=== PATIENT | male | born 1965 | race American Indian/Alaskan Native ===

== ENCOUNTER 2016-11-06 16:58 | Emergency (ER) | payer OTHER ==
[2016-11-06 17:40] VITALS: TEMP 98.7; O2SAT 100
--- NOTE | 2016-11-06 19:38 | C.PDOC ---
History Of Present Illness Patient presents to the ER with a complaint of swollen testicles for the past month. Denies any trauma, nausea, vomiting, diarrhea, fever, or chills. Time Seen by Provider: 11/06/16 19:38 Chief Complaint (Nursing): Abdominal Pain History Per: Patient History/Exam Limitations: no limitations Onset/Duration Of Symptoms: Days (1 Month) Current Symptoms Are (Timing): Still Present Severity: Mild Pain Scale Rating Of: 3 Associated Symptoms: denies: Fever, Chills, Nausea, Vomiting, Diarrhea Past Medical History Reviewed: Historical Data, Nursing Documentation, Vital Signs Vital Signs: Last Vital Signs Temp 98.7 F 11/06/16 17:37 Pulse 72 11/06/16 21:41 Resp 20 11/06/16 21:41 BP 164/96 H 11/06/16 21:41 Pulse Ox 100 11/06/16 20:17 Family History: States: No Known Family Hx - Social History Hx Alcohol Use: Yes Hx Substance Use: Yes (Marijuana) Review Of Systems Constitutional: Negative for: Fever, Chills Gastrointestinal: Negative for: Nausea, Vomiting, Diarrhea Genitourinary: Positive for: Scrotal Pain (Swelling) Physical Exam - Physical Exam Appears: Non-toxic Skin: Warm, Dry Oral Mucosa: Moist Chest: Symmetrical Cardiovascular: Rhythm Regular Respiratory: No Rales, No Rhonchi, No Wheezing Gastrointestinal/Abdominal: Bowel Sounds (Normal), Soft, No Tenderness, No Distention, No Guarding, No Rebound Male Genital: Scrotal Swelling, Other (Large right inguinal hernia, Bowels in scrotal sac.) Neurological/Psych: Oriented x3 ED Course And Treatment - Laboratory Results Result Diagrams: 11/06/16 20:17 11/06/16 20:17 O2 Sat by Pulse Oximetry: 100 (Room air) Pulse Ox Interpretation: Normal Progress Note: CT of abd/pelvis with PO & IV contrast, blood work, and urinalysis ordered. Reevaluation Time: 23:26 Reassessment Condition: Improved Medical Decision Making Medical Decision Making: Upon provider reevaluation patient is feeling better, is medically stable, and requires no further treatment in the ED at this time. Patient will be discharged home with Rx for naproxyn. Counseling was provided and all questions were answered regarding diagnosis and need for follow up with Dr Cunningham. There is agreement to discharge plan. Return if symptoms persist or worsen. Disposition Discussed With : Demetrius Cunningham Counseled Patient/Family Regarding: Studies Performed, Diagnosis, Need For Followup - Disposition Referrals: Demetrius Cunningham MD [Staff Provider] - Disposition: HOME/ ROUTINE Disposition Time: 19:38 Condition: FAIR Additional Instructions: Please follow up with dr Cunningham Prescriptions: Naproxen [Naprosyn] 1 tab PO BID PRN #25 tab PRN Reason: Pain Instructions: Testicle Pain (ED), Hydrocele (ED) - Clinical Impression Clinical Impression: Testicular pain, Hydrocele in adult - Scribe Statement The provider has reviewed the documentation as recorded by the Scribe Rodriguez Akbar All medical record entries made by the Scribe were at my direction and personally dictated by me. I have reviewed the chart and agree that the record accurately reflects my personal performance of the history, physical exam, medical decision making, and the department course for this patient. I have also personally directed, reviewed, and agree with the discharge instructions and disposition.
[2016-11-06] MEDS ORDERED: Iohexol 240 (50 ml) ONE (20:18)
[2016-11-06] MEDS ORDERED: Iohexol 240 (50 ml) PO STA (20:22)
[2016-11-06 20:25] LABS: BASO # 0.1 K/uL (0.0-0.2); BASO % 1.8 % (0.0-2.0); EOS % 0.8 % (0.0-4.0); HEMATOCRIT 32.1 % (35.0-51.0); LYMPH # 3.2 K/uL (1.0-4.3); LYMPH % 57.9 % (20.0-40.0); MEAN CELL VOLUME 68.8 fL (80.0-94.0); MEAN CORPUSCULAR HEMOGLOBIN 21.6 pg (27.0-31.0); MEAN CORPUSCULAR HGB CONC 31.4 g/dL (33.0-37.0); MONO # 0.3 K/uL (0.0-0.8); MONO % 5.5 % (0.0-10.0); RED CELL DISTRIBUTION WIDTH 20.4 % (11.5-14.5); WHITE BLOOD COUNT 5.5 K/uL (4.8-10.8)
[2016-11-06 20:30] LABS: CHLORIDE 102 mmol/L (98-107); POTASSIUM 4.2 mmol/L (3.6-5.2); SODIUM 138 mmol/L (132-148)
[2016-11-06 20:32] LABS: BILIRUBIN,TOTAL 0.3 mg/dL (0.2-1.3); CARBON DIOXIDE 21 mmol/L (22-30); GFR AFRICAN-AMERICAN > 60; RBC URINE < 1 /hpf (0-3); URINE BILIRUBIN NEGATIVE (NEGATIVE); URINE BLOOD NEGATIVE (NEGATIVE); URINE COLOR Straw (YELLOW); URINE GLUCOSE (UA) NORMAL (Normal); URINE KETONE NEGATIVE (NEGATIVE); URINE LEUKOCYTE ESTERASE NEG Leu/uL (Negative); URINE PROTEIN NEGATIVE (NEGATIVE); URINE UROBILINOGEN NORMAL mg/dL (0.2-1.0); WBC URINE < 1 /hpf (0-5)
[2016-11-06 20:33] LABS: ALB/GLOB RATIO 1.2 (1.0-2.1); ALKALINE PHOSPHATASE 46 U/L (38-126); ALT/SGPT 21 U/L (21-72); AST/SGOT 35 U/L (17-59); BLOOD UREA NITROGEN 12 mg/dL (9-20); CALCIUM 9.4 mg/dl (8.6-10.4); GLUCOSE,RANDOM 89 mg/dL (75-110); TOTAL PROTEIN 7.7 g/dL (6.3-8.3)
[2016-11-06] MEDS ORDERED: Iodixanol 320 MG/ML 100 ML BOTTLE IV ONE (21:26)
[2016-11-06 21:41] VITALS: BP 164/96; PULSE 72; RESP 20
--- NOTE | 2016-11-07 10:51 | CT ---
PROCEDURE: CT Abdomen and Pelvis with oral and IV contrast. HISTORY: large r inguinal hernia into scrotum COMPARISON: No priors. TECHNIQUE: Contiguous axial images of the abdomen and pelvis. Oral and IV contrast was administered. Coronal and Sagittal reformats generated and reviewed. This CT exam was performed using 1 or more of the following dose reduction techniques: Automated exposure control, adjustment of the MAA and/or kV according to patient size, and/or use of iterative reconstruction technique Contrast dose: 100 mL Omnipaque 240 Radiation dose: Total exam DLP = 463.26 mGy-cm. FINDINGS: LOWER THORAX: No visible consolidation, pleural effusion, or pneumothorax. Small hiatal hernia. LIVER: Hypoattenuation of the liver compatible with hepatic steatosis. GALLBLADDER AND BILE DUCTS: Unremarkable. PANCREAS: Coarse pancreatic calcifications, particularly at the pancreatic head/uncinate process; correlate for history of chronic pancreatitis. SPLEEN: Small loculated fluid collection, possibly subcapsular noted superior to the spleen with adjacent calcifications. ADRENALS: Unremarkable. KIDNEYS AND URETERS: The kidneys enhance symmetrically. No hydronephrosis or obstructing renal calculus. BLADDER: The urinary bladder appears unremarkable. REPRODUCTIVE: Large right-sided hydrocele with evidence of septation. APPENDIX: No secondary signs of acute appendicitis. BOWEL: The stomach is nondistended ; prominence of the antrum may be related to peristalsis. The bowel loops appear within normal limits of caliber without evidence of intestinal obstruction. Diverticulosis without CT evidence of acute diverticulitis. PERITONEUM: No significant free fluid. No definite free air. LYMPH NODES: No bulky lymphadenopathy identified. VASCULATURE: Atherosclerotic calcifications. No aortic aneurysm. BONES: Degenerative changes of the spine. OTHER FINDINGS: Right inguinal hernia containing fat and fluid without evidence of bowel. Partially imaged mild bilateral gynecomastia. IMPRESSION: Right inguinal hernia containing fat and fluid. Large right-sided hydrocele with evidence of septation. Recommend correlation with testicular ultrasound. Findings which suggest chronic pancreatitis with possible pseudocyst superior to the spleen. Correlate clinically. Additional incidental findings as above. Preliminary impression was provided by [facility].
--- NOTE | 2016-11-07 11:01 | US ---
HISTORY: hydrocele vs inguinal hernia TECHNIQUE: Realtime sonography through the scrotum with color and doppler flow. COMPARISON: CT abdomen and pelvis with contrast performed 11/06/16 FINDINGS: RIGHT TESTICLE: Measures 5.6 x 2.6 x 3.2 cm. Homogeneous echotexture. Blood flow is demonstrated. RIGHT EPIDIDYMIS: Not well-visualized. LEFT TESTICLE: Measures 6.1 x 2.7 x 3.4 cm. Homogeneous echotexture. Blood flow is demonstrated. LEFT EPIDIDYMIS: Not well-visualized. HYDROCELE: Large right hydrocele. Large left hydrocele possibly containing debris. VARICOCELE: None. OTHER FINDINGS: None. IMPRESSION: Large right hydrocele. Large left hydrocele possibly containing debris. Preliminary impression was provided by [facility].
== END 2016-11-06 23:40 | disposition home or self-care (01) ==
LOC: C.ER 16:58
DX: N43.3 Hydrocele, unspecified (principal); N50.819 Testicular pain, unspecified
CPT/HCPCS: 74177; 76870; 80053; 81001; 83690; 85025; 85610; 85730; 99284; Q9966; Q9967